=== PATIENT | female | born 2000 | race Caucasian/White ===

== ENCOUNTER 2020-05-27 08:04 | Emergency (ER) | payer BC, SELFPAY ==
[2020-05-27 08:11] VITALS: BP 128/79; PULSE 72; RESP 16; TEMP 36.3; O2SAT 100
[2020-05-27] MEDS: Normal Saline 1,000 ML 1000 ML IV (08:45)
--- NOTE | 2020-05-27 08:52 | W.ED.GENAD ---
Discharge Plan Disposition Patient Disposition: HOME Condition: Stable Discharge Details Clinical Impression: Anxiety and depression, Poor appetite, Weakness Primary Care Provider: Yu Mace ED Provider: Elvis Alves Home Meds and New Rx's Prescriptions: Continued Lo Loestrin Fe 1 mg-10 mcg (24)/10 mcg (2) tablet 1 tab PO DAILY Qty: 28 RF: 6 ibuprofen 200 mg capsule 200 mg PO Q6H PRNRF: 0 Discharge Instructions Instructions: Depression (ED), Weakness (ED), Anxiety (ED) Additional Instructions: Laboratory values did not reveal any obvious emergent process. As we discussed, be sure to have adequate food and hydration to avoid malnutrition or dehydration. Please watch for new or worsening symptoms and return to the ER for any concerns. I have placed you on the care management list to help expedite outpatient [facility] human services evaluation for your ongoing stress, anxiety, depression. I strongly recommend reaching out your primary care provider tomorrow to discuss your evaluation here in the ER and further evaluation of your symptoms. Medical Decision Making 19-year-old female presents for ongoing poor appetite, increased stress, anxiety, depression, panic attacks. She reports weight loss for the past several months. I was able to review her most recent telemedicine note, it appears as though she has lost 6 pounds since then. Patient only complains now of mild generalized weakness, no recent illness or trauma. She is also concerned about some bruising that was caused by lifting a heavy TV. She appears well, nontoxic. She denies any suicidal or homicidal ideations. Reports she feels safe. We discussed options. Will obtain CBC to evaluate her white blood cell count, hemoglobin, hematocrit, platelet count. Will obtain comprehensive metabolic panel to evaluate her electrolytes, LFTs, renal function. Will obtain urinalysis and . We will also obtain thyroid studies. In the meantime we will give a single liter of IV fluid. Laboratory values resulted and do not show any obvious emergent process. Ketones in her urine, 40. As above she was given 1 L of IV fluid. I discussed the laboratory values with patient and family. She is relieved but is concerned that there is something else potentially wrong. We discussed that the ecchymosis on her legs is not in a petechiae fashion and that some ecchymosis can be present for several weeks. I did voice my concern regarding her increased rest, anxiety, depression. This certainly can cause a decreased appetite and explain some of her symptoms. I asked her if she would like any mental health resources. She was agreeable. I did place her on the [facility] human services list so that they will help expedite outpatient care. I explained to her the importance of contacting her primary care provider tomorrow, they will have my note and laboratory values that were performed here in the ER, and they can continue to evaluate her and further work-up her symptoms if indicated. Patient and family are comfortable this plan and have no additional questions or concerns. I did spend a lengthy amount of time answering any and all questions that both patient and family may have. They are comfortable with the work-up that was done here in the ER and they are relieved that no obvious emergent process was identified. She was encouraged to return to the ER for new or worsening symptoms. Medical Records Medical records reviewed: Yes I reviewed the patient's medical records. Lab Data Lab results reviewed: Yes I reviewed the patient's lab results. Lab results narrative: Laboratory Tests Range/Units 05/27/20 05/27/20 05/27/20 08:45 08:55 08:55 WBC (4.4-10.8) 10^3/uL 4.28 L RBC (3.93-5.22) 10^6/uL 4.69 Hgb (11.2-15.7) g/dL 13.6 Hct (36.0-46.0) % 42.7 MCV (80-95) fL 91.0 MCH (27.0-33.0) pg 29.0 MCHC (32.0-36.0) % 31.9 L RDW (11.7-14.6) % 12.3 Plt Count (130-400) 10^3/uL 259 MPV (8.0-11.0) fL 9.7 Immature Gran % 0.2 Neutrophils % 43.9 Lymphocytes % 43.7 Monocytes % 8.2 Eosinophils % 3.5 Basophils % 0.5 Nucleated RBC % % 0 Absolute Neutrophils (1.2-6.7) 10^3/uL 1.88 Absolute Lymphocytes (1.2-3.4) 10^3/uL 1.87 Absolute Monocytes (0.1-0.8) 10^3/uL 0.35 Absolute Eosinophils (0.0-0.7) 10^3/uL 0.15 Absolute Basophils (0.0-0.2) 10^3/uL 0.02 Sodium (136-145) mmol/L 137 Potassium (3.5-5.1) mmol/L 3.6 Chloride (98-107) mmol/L 102 Carbon Dioxide (21.0-32.0) mmol/L 25.2 Anion Gap (3-11) mmol/L 9.8 BUN (7-18) mg/dL 13 Creatinine (0.55-1.02) mg/dL 1.01 Estimated GFR/1.73 m2 (mL/min/1.73m2) >= 60.00 Glucose (74-106) mg/dL 85 Calcium (8.5-10.1) mg/dL 9.0 Total Bilirubin (0.2-1.0) mg/dL 0.8 AST (15-37) U/L 19 ALT (14-59) U/L 13 L Alkaline Phosphatase (46-116) U/L 52 Total Protein (6.4-8.2) g/dL 7.6 Albumin (3.4-5.0) g/dL 4.1 TSH (0.52-4.13) uIU/mL Urine Color (Yellow) Yellow Urine Clarity (Clear) Clear Urine pH (5-8) 6.0 Ur Specific [place] (1.005-1.025) >= 1.030 H Urine Protein (Negative) mg/dL Negative Urine Ketones (Negative) mg/dL 40 H Urine Blood (Negative) Trace-intact H Urine Nitrite (Negative) Negative Urine Bilirubin (Negative) Small H Urine Urobilinogen (Up TO 0.2) EU/dL 0.2 Ur Leukocyte Esterase (Negative) Negative Urine RBC (0-2) HPF 5-10 H Urine WBC (0-5) HPF 3-5 Ur Epithelial Cells (Negative) HPF Many Urine Crystals (Negative) HPF Negative Urine Bacteria (Negative) HPF Many Urine Casts (Negative) LPF Negative Urine Mucus (Negative) Trace Ur Culture Indicated? No/sq. contamination Urine Glucose (Negative) mg/dL Negative Range/Units 05/27/20 08:55 WBC (4.4-10.8) 10^3/uL RBC (3.93-5.22) 10^6/uL Hgb (11.2-15.7) g/dL Hct (36.0-46.0) % MCV (80-95) fL MCH (27.0-33.0) pg MCHC (32.0-36.0) % RDW (11.7-14.6) % Plt Count (130-400) 10^3/uL MPV (8.0-11.0) fL Immature Gran % Neutrophils % Lymphocytes % Monocytes % Eosinophils % Basophils % Nucleated RBC % % Absolute Neutrophils (1.2-6.7) 10^3/uL Absolute Lymphocytes (1.2-3.4) 10^3/uL Absolute Monocytes (0.1-0.8) 10^3/uL Absolute Eosinophils (0.0-0.7) 10^3/uL Absolute Basophils (0.0-0.2) 10^3/uL Sodium (136-145) mmol/L Potassium (3.5-5.1) mmol/L Chloride (98-107) mmol/L Carbon Dioxide (21.0-32.0) mmol/L Anion Gap (3-11) mmol/L BUN (7-18) mg/dL Creatinine (0.55-1.02) mg/dL Estimated GFR/1.73 m2 (mL/min/1.73m2) Glucose (74-106) mg/dL Calcium (8.5-10.1) mg/dL Total Bilirubin (0.2-1.0) mg/dL AST (15-37) U/L ALT (14-59) U/L Alkaline Phosphatase (46-116) U/L Total Protein (6.4-8.2) g/dL Albumin (3.4-5.0) g/dL TSH (0.52-4.13) uIU/mL 1.25 Urine Color (Yellow) Urine Clarity (Clear) Urine pH (5-8) Ur Specific [place] (1.005-1.025) Urine Protein (Negative) mg/dL Urine Ketones (Negative) mg/dL Urine Blood (Negative) Urine Nitrite (Negative) Urine Bilirubin (Negative) Urine Urobilinogen (Up TO 0.2) EU/dL Ur Leukocyte Esterase (Negative) Urine RBC (0-2) HPF Urine WBC (0-5) HPF Ur Epithelial Cells (Negative) HPF Urine Crystals (Negative) HPF Urine Bacteria (Negative) HPF Urine Casts (Negative) LPF Urine Mucus (Negative) Ur Culture Indicated? Urine Glucose (Negative) mg/dL HPI General Mode of arrival: ambulatory. Date/Time Provider Initiated Documentation: 05/27/20 08:12. Limitations to Documentation: no limitations. Information obtained by: patient and family. HPI Narrative: This is a 19-year-old female who presents to the ER for evaluation. She denies any significant past medical history. She reports that over a several months she has had increased stress, anxiety, depression. She recently broke up with her friend and symptoms are worse. She reports lack of appetite, generalized weakness, and panic attacks. When she has a panic attack she typically hyperventilates and does vomit. She states that she is also losing weight. She would estimate a 20 pound weight loss over a several month time. She did discuss the weight loss with her primary care provider and the patient states that she felt as though her concerns were not taken very seriously, no blood work was obtained, she was told that there was no concern of her weight loss until she is down into the 90 pound range. Patient states that she currently weighs 110 and does not want to lose anymore weight. She states that she has a poor appetite and simply does not want to eat. She denies recent illness or trauma. She denies fever, headache, visual changes, neck pain, chest pain, shortness of breath, abdominal pain, nausea, change in bowel or bladder function. She does tell me that she was lifting a heavy TV a few weeks ago and used her legs to help her lift it, has bruising in that area, but she feels as though the bruising has been present for too long. She denies any suicidal or homicidal ideations and reports that she feels safe. She did not bring up any of her stress, anxiety, depression to her primary care provider. She does not have any outpatient counseling. Her only complaint at this time is that she feels slightly weak, generally. Denies any pain whatsoever. She is concerned that something is clearly wrong. Related Data Home Medications Medication Instructions Recorded Confirmed ibuprofen 200 mg capsule 200 mg PO Q6H PRN 07/22/19 05/27/20 norethindrone 1 mg-ethinyl 1 tab PO DAILY #28 tab 12/21/19 05/27/20 estradiol 10 mcg (24)-iron 10 mcg(2) tablet Previous Rx's Medication Instructions Recorded norethindrone 1 mg-ethinyl 1 tab PO DAILY #28 tab 12/21/19 estradiol 10 mcg (24)-iron 10 mcg(2) tablet Allergies Allergy/AdvReac Type Severity Reaction Status Date / Time Penicillins AdvReac Intermediate GI upset, Verified 05/27/20 08:17 Penicillin cat dander Allergy Mild Sneezing/Itchy Uncoded 05/27/20 08:17 eyes General Stated Complaint: GenMedical CARLOS: 3 Review of Systems Constitutional Constitutional: Denies fatigue, Denies fever(s) and Denies headache(s) Eyes Eyes: Denies change in vision ENT Ears, Nose, Mouth, and Throat: Denies headache(s) and Denies neck pain Cardiovascular Cardiovascular: Denies chest pain and Denies dyspnea Respiratory Respiratory: Denies cough and Denies dyspnea Gastrointestinal Gastrointestinal: Denies abdominal pain, Denies nausea and Reports vomiting (With a panic attack) Genitourinary Genitourinary: Denies dysuria and Denies vaginal discharge Musculoskeletal Musculoskeletal: Denies myalgias, Denies muscle weakness, Denies neck pain, Denies numbness and Denies tingling Integumentary/Breasts Skin/Breast: Denies rash Neurologic Neurologic: Denies headache(s), Denies numbness, Denies tingling and Reports weakness (Generalized) Psychiatric Psychiatric: Reports anxiety, Reports change in appetite, Reports depression, Reports panic attacks, Denies homicidal ideation and Denies suicidal ideation Endocrine Endocrine: Denies fatigue Hematologic/Lymphatic Hematologic/Lymphatic: Denies easy bleeding PFSH Family History Father Substance abuse Mother Depression Social History Smoking/Tobacco Use Status: Never Alcohol Intake: never Drug use: Daily Substance use type: marijuana Adopted: No Caregiver/Support person: No Foster care: No Household members: family Housing: house Communication Needs: None Do you need help understanding health information?: Rarely current occupation: [employer] Sexually active: No Do you think of yourself as: straight/heterosexual Current gender identity: female What type of physical activity do you participate in: irregular exercise Seatbelt use: always Drive intox or ride w/intox electric pile driver operator: No Working smoke detector in home: Yes Carbon monox detector in home: Yes Do you feel safe at home: Yes Exam Const General: cooperative, healthy appearing, comfortable and no acute distress Orientation: alert, awake and oriented x3 [facility] Head: normal to inspection, normocephalic and atraumatic Ears: external ears normal, TM's normal bilaterally and EAC's normal General nose exam: external nose normal Face and sinus: normal facial exam Mouth: oral mucosae normal and moist mucous membranes Throat: posterior oropharynx normal Eyes General: appearance normal, both eyes and all related structures Alignment and Position: alignment normal Periorbital: periorbital findings normal Eyelids: eyelids normal Conjunctivae: conjunctivae normal Sclera: sclerae normal Cornea: corneas normal Pupils: PERRL EOM: EOM intact bilaterally Direct ophthalmoscopy: normal light reflex Neck Neck: normal visual inspection, full ROM, no lymphadenopathy, no meningeal signs, trachea midline, supple and nontender Resp Effort & Inspection: normal respiratory effort and able to speak in complete sentences Auscultation: clear to auscultation bilaterally Cardio Rate: regular rate Rhythm: regular rhythm GI Palpation: soft, not firm, no guarding, not rigid and nontender Auscultation: normal bowel sounds Back/Spine/Pelvis Back: no CVA tenderness and No back tenderness Skin Rashes: no rashes Full body images: 1. Few patchy areas of ecchymosis. Skin is intact. No petechiae. Neuro General: patient alert, patient awake, patient oriented x3, moves all extremities and no focal motor deficits Cranial Nerves: CN's II-XI intact bilaterally Cognition: normal cognition Speech: speech normal Gait: normal gait Motor: muscle tone normal throughout Sensory Exam: no sensory deficits noted Extrem General: normal to inspection, full ROM, capillary refill normal and no pedal edema Psych Appearance: grossly normal Mental Status: mental status grossly normal Speech and Movement: speech and movement normal Mood: dysthymic mood Affect: sad Attitude: cooperative Thought Content: normal Insight: insight good Judgment: judgment good Course Vital Signs Vital signs: Vital Signs Temperature 36.3 C L 05/27/20 08:11 Pulse 72 05/27/20 08:11 Respiratory Rate 16 05/27/20 08:11 Blood Pressure 128/79 05/27/20 08:11 Pulse Oximetry 100 05/27/20 08:11 Temperature 36.3 C L 05/27/20 08:11 Temperature Source Skin 05/27/20 08:11 Pulse 72 05/27/20 08:11 Respiratory Rate 16 05/27/20 08:11 Respiratory Effort Non-Labored 05/27/20 08:11 Blood Pressure 128/79 05/27/20 08:11 Blood Pressure Position Sitting 05/27/20 08:11 Pulse Oximetry 100 05/27/20 08:11 Pain Level 0 05/27/20 08:11
[2020-05-27 08:54] LABS: Bilirubin Small (Negative); Blood Trace-intact (Negative); Clarity Clear (Clear); Glucose Negative (Negative); Ketones 40 mg/dL (Negative); Leukocyte Esterase Negative (Negative); Nitrite Negative (Negative); Specific Gravity >= 1.030 (1.005-1.025); Urobilinogen 0.2 EU/dL (Up TO 0.2)
[2020-05-27] MEDS: Normal Saline Flush 10 ML SYR IVP (08:57)
[2020-05-27 09:04] LABS: Abs Immature Grans 0.01 10^3/uL (0.0-0.06); Absolute Basophil Count 0.02 10^3/uL (0.0-0.2); Absolute Eosinophil Count 0.15 10^3/uL (0.0-0.7); Absolute Lymphocyte Count 1.87 10^3/uL (1.2-3.4); Absolute Monocyte Count 0.35 10^3/uL (0.1-0.8); Absolute Neutrophil Count 1.88 10^3/uL (1.2-6.7); Basophils % 0.5; Eosinophils % 3.5; HCT 42.7 % (36.0-46.0); HGB 13.6 g/dL (11.2-15.7); Immature Grans % 0.2; Lymphocytes % 43.7; MCHC 31.9 % (32.0-36.0); MPV 9.7 fL (8.0-11.0); Monocytes % 8.2; Neutrophils % 43.9; Nucleated RBC 0 %; Platelet Count 259 10^3/uL (130-400); RBC 4.69 10^6/uL (3.93-5.22); RDW 12.3 % (11.7-14.6); RDW-SD 40.7 fL; WBC 4.28 10^3/uL (4.4-10.8)
[2020-05-27 09:06] VITALS: RESP 16
[2020-05-27 09:07] LABS: Bacteria Many HPF (Negative); C & S Indicated? No/Sq. Contamination; Casts Negative LPF (Negative); Crystals Negative HPF (Negative); Epithelial Cells Many HPF (Negative); Mucus Trace (Negative)
[2020-05-27 09:12] LABS: ALT 13 U/L (14-59); AST 19 U/L (15-37); Albumin 4.1 g/dL (3.4-5.0); Alkaline Phosphatase 52 U/L (46-116); Anion Gap 9.8 mmol/L (3-11); BUN 13 mg/dL (7-18); Bilirubin, Total 0.8 mg/dL (0.2-1.0); CO2 25.2 mmol/L (21.0-32.0); CREATININE 1.01 mg/dL (0.55-1.02); Chloride 102 mmol/L (98-107); Glucose 85 mg/dL (74-106); Potassium 3.6 mmol/L (3.5-5.1); Sodium 137 mmol/L (136-145); Total Protein 7.6 g/dL (6.4-8.2)
--- NOTE | 2020-05-27 09:24 | NUR.NOTE ---
Nursing Note: Referral faxed to PCP to provide patient with a mental health appt. Tammy Morales
[2020-05-27 09:52] VITALS: BP 113/65; PULSE 88; RESP 16; TEMP 36.3; O2SAT 100
[2020-05-27 09:52] LABS: TSH (W/Ref FT4) 1.25 uIU/mL (0.52-4.13)
== END 2020-05-27 09:40 | disposition home or self-care (01) ==
PROVIDERS: Emergency Provider Physician Assistant; PCP Nurse Practitioner
DX: F41.8 Other specified anxiety disorders (principal); R63.0 Anorexia; R53.1 Weakness
CPT/HCPCS: 36415; 80053; 81025; 96360; 99284; 81003; 81015; 84443; 85025

== ENCOUNTER 2020-07-17 12:04 | Outpatient (REF) | payer BC, SELFPAY ==
[2020-07-18 15:08] LABS: Chlamydia Result Negative (Negative); GC Result Negative (Negative)
== END 2020-07-17 12:24 ==
LOC: LBN 12:04
PROVIDERS: PCP Nurse Practitioner; Visit Provider Nurse Practitioner Women's Health
DX: Z11.3 Encounter for screening for infections with a predominantly sexual mode of transmission (principal)
CPT/HCPCS: 87491; 87591

== ENCOUNTER 2021-02-14 15:39 | Outpatient (CLI) | payer BC, SELFPAY ==
--- NOTE | 2021-02-14 15:02 | DI.RAD_ITS ---
Exam(s) XR HAND LT COMPLETE EXAM: XR HAND LT COMPLETE CLINICAL HISTORY: left pinky pain, weakness,pt feels bony abnormality, hand weakness, R29.898. TECHNIQUE: 2D digital imaging was performed. COMPARISON: CR RIGHT MIDDLE FINGER from 08/23/2011 FINDINGS: BONES: No acute fracture is present. No bony destructive lesion is seen. No bony deformity. JOINTS: No dislocation present. SOFT TISSUE: Normal. No foreign body or calcification IMPRESSION: Unremarkable radiographs of the left hand. DATA REPOSITORY: RADIATION DOSE DELIVERED:
== END 2021-02-14 15:59 ==
PROVIDERS: PCP Nurse Practitioner; Visit Provider Nurse Practitioner
DX: M79.642 Pain in left hand (principal); R29.898 Other symptoms and signs involving the musculoskeletal system
CPT/HCPCS: 73130

== ENCOUNTER 2021-02-14 18:58 | Outpatient (REF) | payer BC, SELFPAY ==
[2021-02-18 14:01] LABS: Chlamydia Result Negative (Negative); GC Result Negative (Negative)
== END 2021-02-14 18:59 | disposition home or self-care (01) ==
LOC: LBN 18:58
PROVIDERS: PCP Nurse Practitioner; Visit Provider Nurse Practitioner
DX: Z11.3 Encounter for screening for infections with a predominantly sexual mode of transmission (principal)
CPT/HCPCS: 87491; 87591

== ENCOUNTER 2022-03-06 10:14 | Outpatient (REF) | payer SELFPAY ==
--- NOTE | 2022-03-06 09:30 | PAPFT_PTH ---
PATIENT: Elsy Calvert LOC: [facility] U#:[id number] AGE/SX: 21/F ROOM: RE03/06/[address]: Yu Mace APRN : 2000 BED: DIS: 03/06/2022 SPEC #: [id number] RECD: 03/06/22 17:39 STATUS: RYANNE REQ #: [id number] SHAHEEN: 03/06/22 09:[address]: Yu Mace DEPT: [facility] Cytology RECD BY: Elizabeth Short Tissues: 1 - CX/ENDOCX FOR PAP SMEARS Procedures: PAP THIN PREP/[facility] Screening Comments: [id number] (CHLAMYDIA/GC)
[2022-03-07 14:58] LABS: Chlamydia Result Negative (Negative); GC Result Negative (Negative)
== END 2022-03-06 10:15 | disposition home or self-care (01) ==
LOC: LBN 10:14
PROVIDERS: PCP Nurse Practitioner; Visit Provider Nurse Practitioner
DX: Z11.3 Encounter for screening for infections with a predominantly sexual mode of transmission (principal); Z12.4 Encounter for screening for malignant neoplasm of cervix
CPT/HCPCS: 87491; 87591; 88142

== ENCOUNTER → 2023-12-24 03:10 | Outpatient (CLI) | payer OTHER, SELFPAY ==
--- NOTE | 2023-12-24 14:31 | DI.RAD_ITS ---
Exam(s) XR LUMBAR SPINE COMPLETE EXAM: XR LUMBAR SPINE COMPLETE CLINICAL HISTORY: low back pain, m54.50. TECHNIQUE: 2D digital imaging was performed of the lumbar spine. Five images were obtained. AP, la teral, right oblique, left oblique and L5-S1 spot views were obtained. COMPARISON: No exams were available for comparison FINDINGS: BONES: No fracture or destructive lesion. Vertebral bodies are unremarkable. No facet hypertrophy levi ntified. DISKS: Intervertebral disc spaces are maintained. ALIGNMENT: Lumbar spinal alignment is within normal limits. No spondylolysis or spondylolisthesis. SOFT TISSUE: Normal. IMPRESSION: Unremarkable radiographs of the lumbar spine. DATA REPOSITORY: RADIATION DOSE DELIVERED:
== END ==
PROVIDERS: PCP Nurse Practitioner; Visit Provider Nurse Practitioner
DX: M54.50 Low back pain, unspecified (principal)
CPT/HCPCS: 72110

== ENCOUNTER 2024-06-23 01:53 | Outpatient (CLI) | payer OTHER, SELFPAY ==
[2024-06-23 10:13] LABS: Glucose 86 mg/dL (74-106)
[2024-06-23 10:19] LABS: HCT 41.4 % (36.0-46.0); MCH 30.4 pg (27.0-33.0); MCHC 31.4 % (32.0-36.0); MCV 97 fL (80-95); MPV 9.5 fL (8.0-11.0); Platelet Count 257 10^3/uL (130-400); RBC 4.28 10^6/uL (3.93-5.22); RDW 11.7 % (11.7-14.6); RDW-SD 41.3 fL; WBC 4.84 10^3/uL (4.4-10.8)
[2024-06-23 10:37] LABS: Calculated LDL 84 mg/dL (<100); Cholesterol 164 mg/dL (<200); Ferritin 53 ng/mL (8-252); HDL Cholesterol 74 mg/dL (40-60); Triglyceride 33 mg/dL (<150)
== END 2024-06-23 01:54 | disposition home or self-care (01) ==
LOC: LBO 01:53
PROVIDERS: PCP Nurse Practitioner Family; Visit Provider Nurse Practitioner Family
DX: Z00.00 Encounter for general adult medical examination without abnormal findings (principal); R42 Dizziness and giddiness
CPT/HCPCS: 36415; 80061; 82947; 85027; 82728

== ENCOUNTER 2024-07-01 01:42 | Outpatient (CLI) | payer OTHER, SELFPAY ==
--- NOTE | 2024-07-01 11:54 | DI.RAD_ITS ---
Exam(s) XR WRIST LT COMPLETE EXAM: XR WRIST LT COMPLETE CLINICAL HISTORY: left wrist pain,M25.532. TECHNIQUE: 2D digital imaging was performed. Three views. COMPARISON: No exams were available for comparison FINDINGS: BONES: No acute fracture is present. No bony destructive lesion is seen. JOINTS: The carpal bones are normally aligned. SOFT TISSUE: Normal. IMPRESSION: Unremarkable radiographs of the left wrist. DATA REPOSITORY: RADIATION DOSE DELIVERED:
== END 2024-07-01 02:02 ==
LOC: DI 01:42
PROVIDERS: PCP Nurse Practitioner Family; Visit Provider Nurse Practitioner Family
DX: M25.532 Pain in left wrist (principal)
CPT/HCPCS: 73110

== ENCOUNTER 2024-07-01 02:52 | Outpatient (CLI) | payer OTHER, SELFPAY ==
[2024-07-01] MEDS: Inhaler, Assist Device 1 EACH MC (11:50)
[2024-07-01] MEDS: Albuterol HFA 18 GM 200 PUFF INH IH (11:50)
[2024-07-01] MEDS: Methacholine 100 MG VIAL IH (11:50)
--- NOTE | 2024-07-11 14:49 | W.PFT ---
Date of service: 07/01/24 Time of Service: 10:03 Pulmonary Function Test Result Indications: Dyspnea Interpretation Spirometry: No baseline airflow limitation. There was a 31% decrease in FEV1 with administration of 1.0mg/mL methacholine. Lung Volumes: Normal lung volumes Diffusion Capacity: Normal diffusion Airway Pressure: Normal airways resistance Impression Normal baseline pulmonary function with a positive methacholine challenge Clinical Correlation therefore is recommended.
== END 2024-07-01 02:53 | disposition home or self-care (01) ==
LOC: RT 02:52
PROVIDERS: PCP Nurse Practitioner Family; Visit Provider Nurse Practitioner Family
DX: R06.02 Shortness of breath (principal)
CPT/HCPCS: 94060; 94070; 94726; 94729; J7674